=== PATIENT | male | born 1945 | race Asian ===

== ENCOUNTER 2016-11-06 11:07 | Outpatient (CLI) | payer MEDICARE | END 2016-11-06 11:08 | DX: Z00.00 Encounter for general adult medical examination without abnormal findings (principal); I10 Essential (primary) hypertension; E78.5 Hyperlipidemia, unspecified; N40.0 Benign prostatic hyperplasia without lower urinary tract symptoms ==

== ENCOUNTER 2016-12-14 10:20 | Outpatient (CLI) | payer MEDICARE ==
--- NOTE | 2016-12-15 06:44 | Ultrasound Report ---
CAROTID DUPLEX: 12/14/2016 CLINICAL INDICATION: Right carotid bruit. TECHNIQUE: Real-time sonographic vascular imaging was performed by the combination worker through the carotid arteries utilizing both color-flow and Doppler spectral analysis. Multiple farm loan representative static images were saved for review. Vessel PSV cm/sec 2D Plaque Estimate % ICA/CCA PSV EDV cm/sec % Stenosis RCCA Prox 118 -- RCCA Dist 96 28 RECA 86 -- RT BULB 42 -- 0.44 11 DOROTHEA Prox 68 -- 0.71 20 DOROTHEA Mid 57 -- 0.59 23 DOROTHEA Dist 47 -- 0.49 18 RVA 56 RVA flow direction: Antegrade. Vessel PSV cm/sec 2D Plaque Estimate % ICA/CCA PSV EDV cm/sec % Stenosis LCCA Prox 132 -- LCCA Dist 76 21 LECA 75 -- LFT BULB 49 -- 0.64 10 LICA Prox 54 -- 0.71 23 LICA Mid 80 -- 1.05 32 LICA Dist 57 -- 0.75 26 LVA 39 LVA flow direction: Antegrade. Velocity criteria are extrapolated from diameter data as defined by the Society of Radiologists in Ultrasound Consensus Conference Radiology 2003; 229; 340-346. Degree of Stenosis % ICA PSV cm/sec Plaque Estimate % ICA/CCA RSV Ratio ICA EDV cm/sec Normal < 125 None < 2.0 < 40 <50 < 125 < 50 < 2.0 < 40 50-69 125 - 130 >/= 50 2.0 - 4.0 40 - 100 >/= 70 but less than near occlusion > 230 >/= 50 > 4.0 > 100 Near occlusion High, low, or undetectable Visible lumen Variable Variable Total occlusion Undetectable No detectable lumen Not applicable Not applicable FINDINGS: RIGHT: There is minimal plaquing in the right carotid bifurcation, without evidence of a focal hemodynamically significant carotid stenosis. LEFT: There is minimal plaquing in the left carotid bifurcation, without evidence of a focal hemodynamically significant carotid stenosis. The vertebral arteries demonstrate antegrade flow bilaterally. IMPRESSION: MINIMAL PLAQUING BILATERALLY, WITHOUT EVIDENCE OF A FOCAL HEMODYNAMICALLY SIGNIFICANT CAROTID STENOSIS. MTDD
== END 2016-12-14 10:21 | disposition home or self-care (01) ==
LOC: DI 10:20
PROVIDERS: ATTEND Nurse Practitioner Family
DX: R01.1 Cardiac murmur, unspecified (principal); I51.7 Cardiomegaly
CPT/HCPCS: 93306; 93880

== ENCOUNTER 2017-01-22 10:05 | Outpatient (CLI) | payer MEDICARE ==
[2017-01-22 18:57] LABS: BILIRUBIN,DIRECT 0.1 mg/dL (0.1-0.5); BILIRUBIN,TOTAL 0.6 mg/dL (0.2-1.0); CHOL/HDL RATIO 3.3 (<5.0); CHOLESTEROL 149 mg/dL; HDL CHOLESTEROL 45 mg/dL; LDL/HDL RATIO 1.9 (<3.6); TOTAL PROTEIN 7.2 g/dL (6.7-8.2); TRIGLYCERIDES 96 mg/dL; VLDL CHOLESTEROL 19 mg/dL
== END 2017-01-22 10:06 | disposition home or self-care (01) ==
LOC: LAB.S 10:05
PROVIDERS: ATTEND Nurse Practitioner Family
DX: E78.5 Hyperlipidemia, unspecified (principal)
CPT/HCPCS: 36415; 80061; 80076

== ENCOUNTER 2017-12-17 09:27 | Outpatient (CLI) | payer MEDICARE ==
[2017-12-17 18:02] LABS: BASOPHILS # (AUTO) 0.1 10^3/uL (0.0-0.1); BASOPHILS % (AUTO) 1.3 %; EOSINOPHILS # (AUTO) 0.3 10^3/uL (0.0-0.7); EOSINOPHILS % (AUTO) 6.5 %; HGB - HEMOGLOBIN 14.9 g/dL (14.0-18.0); LYMPHOCYTES # (AUTO) 1.6 10^3/uL (1.5-3.5); MEAN CORPUSCULAR HEMOGLOBIN 31.4 pg (27.0-31.0); MEAN CORPUSCULAR HGB CONC 32.9 g/dL (32.0-36.0); MEAN CORPUSCULAR VOLUME 95.7 fL (80.0-94.0); MONOCYTES # (AUTO) 0.5 10^3/uL (0.0-1.0); MONOCYTES % (AUTO) 9.7 %; NEUTROPHILS # (AUTO) 2.8 10^3/uL (1.5-6.6); NEUTROPHILS % (AUTO) 52.5 %; PLT - PLATELET COUNT 258 10^3/uL (130-450); RED BLOOD COUNT 4.74 10^6/uL (4.70-6.10); RED CELL DISTRIBUTION WIDTH 13.2 % (12.0-15.0); WHITE BLOOD COUNT 5.3 x10^3/uL (4.8-10.8)
[2017-12-17 18:28] LABS: ALBUMIN 4.4 g/dL (3.2-5.5); ALBUMIN/GLOBULIN RATIO 1.6 (1.0-2.2); ALKALINE PHOSPHATASE 40 IU/L (42-121); ALT ALANINE AMINOTRANSFERASE 28 IU/L (10-60); AST ASPARTATE AMINOTRANSFERASE 25 IU/L (10-42); BILIRUBIN,TOTAL 0.9 mg/dL (0.2-1.0); BUN - BLOOD UREA NITROGEN 26 mg/dL (6-20); CALCIUM 9.5 mg/dL (8.5-10.3); CARBON DIOXIDE - CO2 28 mmol/L (21-32); CHLORIDE 104 mmol/L (101-111); CHOL/HDL RATIO 3.4 (<5.0); CHOLESTEROL 134 mg/dL; CREATININE 1.1 mg/dL (0.6-1.2); GFR - MDRD 66 (>89); GLUCOSE 102 mg/dL (70-100); HDL CHOLESTEROL 39 mg/dL; LDL CHOLESTEROL,CALCULATED 74 mg/dL; LDL/HDL RATIO 1.9 (<3.6); SODIUM 140 mmol/L (135-145); TOTAL PROTEIN 7.1 g/dL (6.7-8.2); VLDL CHOLESTEROL 21 mg/dL
== END 2017-12-17 09:28 ==
LOC: LAB.S 09:27
PROVIDERS: ATTEND Nurse Practitioner Family
DX: I10 Essential (primary) hypertension (principal); E78.5 Hyperlipidemia, unspecified; Z12.5 Encounter for screening for malignant neoplasm of prostate
CPT/HCPCS: 36415; 80053; 80061; 84443; 85025; G0103; 83721; 84153

== ENCOUNTER 2018-11-28 20:16 | Emergency (ER) | payer MEDICARE ==
[2018-11-28 20:28] VITALS: BP 150/83
--- NOTE | 2018-11-28 20:48 | ED Physician Documentation ---
History of Present Illness - Stated complaint Stated Complaint: ARM SWELLING/BITE - Chief complaint Chief Complaint: Ext Problem - History obtained from History obtained from: Patient - Additonal information Additional information: Patient is a previously healthy 73-year-old, right-handed male presenting with swelling, redness, warmth and tenderness to his left hand after being stung by bee yesterday. Patient reports that since that time his left hand and forearm have become more swollen, tender, red and warm. Patient was seen by physician earlier today and started on prednisone which he has taken and noted improvement of the redness already. 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 Patient also denies fever. Patient has not yet tried ibuprofen, Tylenol, or elevation. No other improving or worsening factors noted. Review of Systems Constitutional: denies: Fever Skin: reports: Bite / sting PD PAST MEDICAL HISTORY - Past Medical History Cardiovascular: Hypertension GI: Cholelithiasis : Benign prostate hypertrophy - Past Surgical History Past Surgical History: Yes General: Appendectomy - Present Medications Home Medications: Ambulatory Orders Medication Instructions Recorded Confirmed RX: Aspirin [Stew Chewable 81 mg 10/20/15 Aspirin] RX: Lisinopril 20 mg 10/20/15 Tamsulosin [Flomax] 0.4 mg 10/20/15 Prednisone [Amanda] 1 mg PO 11/28/18 RX: amLODIPine [Norvasc] 5 mg ORAL DAILY 11/28/18 11/28/18 - Allergies Allergies/Adverse Reactions: Allergies Allergy/AdvReac Type Severity Reaction Status Date / Time pravastatin Allergy Unknown Verified 11/28/18 20:29 - Social History Does the pt smoke?: No Smoking Status: Never smoker Does the pt drink ETOH?: No Does the pt have substance abuse?: No - Immunizations Immunizations are current?: No PD ED PE NORMAL - Vitals Vital signs reviewed: Yes - General General: Alert and oriented X 3, No acute distress, Well developed/nourished - HEENT HEENT: Atraumatic - Cardiac Cardiac: Strong equal pulses (Cap refill brisk) - Respiratory Respiratory: No respiratory distress - Derm Derm: Other (Appreciable swelling, erythema, and warmth to the touch of left hand diffusely that continues into the left forearm. 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 Patient was seen by a physician earlier today and started on steroids and symptoms have already improved. Also considered cellulitis, but feel that symptoms are more allergic in nature. At this time, do not feel patient requires antibiotics, but advised on strict return precautions and close follow-up. Area marked appropriately to provide more objective view if symptoms are worsening or not. Also discussed other supportive cares including elevation, ice application, and anti-inflammatories. Otherwise, have low suspicion for other complications including fracture, dislocation, but considered. Do not feel patient requires further interventions at this time. Patient voiced understanding and is comfortable with discharge plan. Departure - Departure Disposition: 01 Home, Self Care Clinical Impression: Allergic reaction Condition: Good Instructions: ED Bite Sting Insect Local Allergic React Follow-Up: Radha Moreno ARNP [Primary Care Provider] - Comments: Please continue all medications at home including steroids. Also recommend regular use of ibuprofen or Tylenol throughout the day to help reduce inflammation. May also place ice and use elevation to help reduce swelling. Please follow-up with your primary care physician in the next 1 to 2 days. Return to ED immediately if experience worsening swelling, redness, pain, fever, or other concerns. Discharge Date/Time: 11/28/18 21:14
== END 2018-11-28 21:14 | disposition home or self-care (01) ==
LOC: ED 20:16
DX: T63.441A Toxic effect of venom of bees, accidental (unintentional), initial encounter (principal); X58.XXXA Exposure to other specified factors, initial encounter; M79.89 Other specified soft tissue disorders; I10 Essential (primary) hypertension
CPT/HCPCS: 99282; 99283

== ENCOUNTER 2019-01-06 09:17 | Outpatient (CLI) | payer MEDICARE ==
[2019-01-06 17:19] LABS: BASOPHILS # (AUTO) 0.1 10^3/uL (0.0-0.1); BASOPHILS % (AUTO) 1.2 %; EOSINOPHILS # (AUTO) 0.3 10^3/uL (0.0-0.7); EOSINOPHILS % (AUTO) 5.3 %; LYMPHOCYTES # (AUTO) 1.5 10^3/uL (1.5-3.5); LYMPHOCYTES % (AUTO) 31.2 %; MEAN CORPUSCULAR HEMOGLOBIN 30.4 pg (27.0-31.0); MEAN CORPUSCULAR HGB CONC 31.7 g/dL (32.0-36.0); MEAN CORPUSCULAR VOLUME 95.7 fL (80.0-94.0); MEAN PLATELET VOLUME 10.4 fL (7.4-11.4); MONOCYTES # (AUTO) 0.6 10^3/uL (0.0-1.0); MONOCYTES % (AUTO) 11.4 %; NEUTROPHILS # (AUTO) 2.5 10^3/uL (1.5-6.6); NEUTROPHILS % (AUTO) 50.7 %; PLT - PLATELET COUNT 252 10^3/uL (130-450); RED BLOOD COUNT 4.94 10^6/uL (4.70-6.10); RED CELL DISTRIBUTION WIDTH 12.5 % (12.0-15.0); WHITE BLOOD COUNT 4.9 x10^3/uL (4.8-10.8)
[2019-01-06 17:54] LABS: ALBUMIN 4.5 g/dL (3.2-5.5); ALBUMIN/GLOBULIN RATIO 1.6 (1.0-2.2); ALKALINE PHOSPHATASE 39 IU/L (42-121); ALT ALANINE AMINOTRANSFERASE 27 IU/L (10-60); AST ASPARTATE AMINOTRANSFERASE 21 IU/L (10-42); BILIRUBIN,TOTAL 0.8 mg/dL (0.2-1.0); BUN - BLOOD UREA NITROGEN 21 mg/dL (6-20); CALCIUM 9.6 mg/dL (8.5-10.3); CARBON DIOXIDE - CO2 28 mmol/L (21-32); CHLORIDE 102 mmol/L (101-111); CHOL/HDL RATIO 3.8 (<5.0); CHOLESTEROL 161 mg/dL; CREATININE 1.1 mg/dL (0.6-1.2); GFR - MDRD 66 (>89); GLUCOSE 110 mg/dL (70-100); HDL CHOLESTEROL 42 mg/dL; LDL CHOLESTEROL,CALCULATED 99 mg/dL; LDL/HDL RATIO 2.4 (<3.6); SODIUM 141 mmol/L (135-145); TOTAL PROTEIN 7.3 g/dL (6.7-8.2); VLDL CHOLESTEROL 20 mg/dL
[2019-01-06 18:18] LABS: HB2 TOTAL 16.4 g/dL; HEMOGLOBIN A1C 0.75 g/dL; HEMOGLOBIN A1C % 6.3 % (4.6-6.2)
== END 2019-01-06 09:18 | disposition home or self-care (01) ==
LOC: LAB.S 09:17
PROVIDERS: ATTEND Registered Nurse
DX: E78.5 Hyperlipidemia, unspecified (principal); R09.89 Other specified symptoms and signs involving the circulatory and respiratory systems; I10 Essential (primary) hypertension; N40.0 Benign prostatic hyperplasia without lower urinary tract symptoms
CPT/HCPCS: 36415; 80061; 83036; G0103; 80053; 83721; 84153; 84443; 85025

== ENCOUNTER 2022-12-28 07:05 | Outpatient (CLI) | payer MEDICARE ==
[2022-12-28] MEDS ORDERED: LIDOCAINE-MPF 1% 5 ML VIAL ONE (07:28)
[2022-12-28] MEDS ORDERED: fentaNYL 100 MCG/2 ML VIAL ONE (07:47)
[2022-12-28] MEDS ORDERED: MIDAZOLAM 2 MG/2 ML VIAL ONE (07:47)
[2022-12-28] MEDS ORDERED: fentaNYL 100 MCG/2 ML VIAL IVP STA (08:40)
[2022-12-28] MEDS ORDERED: MIDAZOLAM 2 MG/2 ML VIAL IVP ONE (08:40)
[2022-12-28] MEDS ORDERED: LACTATED RINGERS 1,000 ML IV ONE ×2 (09:26→09:51)
--- NOTE | 2022-12-28 09:36 | CT Report ---
PROCEDURE: LT LUNG BX PERC Sedation analgesia for 15 minutes. INDICATIONS: LUNG CA TECHNIQUE: The indications, alternatives, benefits, risks, and possible complications of the procedure were comm unicated to the patient. Informed written consent from the patient was obtained and placed in the art. Continuous EKG and hemodynamic monitoring was started by trained personnel. For radiation dose reduction, the following was used: automated exposure control, adjustment of mA and/or kV according to patient size. The patient was brought to the CT suite and deputy insurance commissioner spiral CT imaging was performed with localization g rid. The appropriate site for percutaneous access to the biopsy target was marked, was prepped and d raped sterilely, and was infused with local anaesthesia. Under CT guidance, a core biopsy trocar and needle set was advanced to the biopsy target, and specimen(s) were obtained. The trocar and needle were then removed, and the patient was sent for post-procedure monitoring. COMPARISON: CT chest 12/15/2022 FINDINGS: Biopsy site: Left lung base Needle: 18 gauge biopsy needle with introducer trocar. Number of passes: 5 Medications: 1% lidocaine for local anaesthesia. IV Fentanyl and Versed for conscious sedation for 15 minutes (see nursing record). Complications: Left pneumothorax. IMPRESSION: Successful CT-guided biopsy of the left basilar lung mass. Reviewed by: Nelson Donovan MD on 12/28/2022 9:35 AM PDT Approved by: Nelson Donovan MD on 12/28/2022 9:35 AM PDT Station ID: [id number]
[2022-12-28 09:49] VITALS: BP 130/72
--- NOTE | 2022-12-28 10:12 | XRAY Report ---
PROCEDURE: Chest radiograph 1 view INDICATIONS: 30min Post Lung Biopsy Chest XR TECHNIQUE: One view of the chest was acquired. COMPARISON: Images from CT lung biopsy same day, CT chest 12/15/2022 FINDINGS: Surgical changes and devices: None. Lungs and pleura: Small left apical pneumothorax. Known left basilar lung mass better seen on prior CT. No pleural effusion. Mediastinum: Cardiac silhouette is at the upper limits of normal in size. Bones and chest wall: No suspicious bony lesions. Overlying soft tissues appear unremarkable. IMPRESSION: Small left apical pneumothorax. Discussed with Dr. Almeida at approximately 1005 hours 12/28/2022 Reviewed by: Nelson Donovan MD on 12/28/2022 10:10 AM PDT Approved by: Nelson Donovan MD on 12/28/2022 10:10 AM PDT Station ID: [id number]
== END 2022-12-28 07:06 | disposition home or self-care (01) ==
LOC: DI 07:05
PROVIDERS: ATTEND Internal Medicine Hematology & Oncology
DX: D02.22 Carcinoma in situ of left bronchus and lung (principal); J95.811 Postprocedural pneumothorax
CPT/HCPCS: 32408

== ENCOUNTER 2022-12-28 10:17 | Emergency (ER) | payer MEDICARE ==
--- NOTE | 2022-12-28 10:24 | ED Physician Documentation ---
PD HPI CHEST PAIN - Stated complaint Stated Complaint: POST SURGICAL - History obtained from History obtained from: Patient - History of Present Illness Timing - onset: How many hours ago (1), Today Timing - onset during: Other (The patient has a recently diagnosed left midlung mass that was biopsied in interventional radiology at our facility about an hour ago. Postprocedure chest x-ray showed a small pneumothorax. Patient referred to the ER for observation/further evaluation.) Timing - details: Abrupt onset, Still present Quality: Aching (The patient complains of some aching pain at the site of the biopsy needle introduction site. He denies any shoulder pain. He denies feeling of dyspnea. He is comfortable at this time.) Location: Left chest Associated symptoms: No: Shortness of air, Nausea, Feeling faint / dizzy, Palpitations Similar symptoms before: Has not had sx before Recently seen: Other (seen in Radiology with percutaneous biopsy done this morning about 1 hour ago.) Review of Systems Constitutional: denies: Fever, Chills Cardiac: denies: Palpitations Neurologic: denies: Generalized weakness, Near syncope PD PAST MEDICAL HISTORY - Past Medical History Cardiovascular: Hypertension, High cholesterol, Murmur Respiratory: Other Endocrine/Autoimmune: Type 2 diabetes GI: GERD : Benign prostate hypertrophy HEENT: None Derm: None - Past Surgical History Past Surgical History: Yes General: Appendectomy - Present Medications Home Medications: Ambulatory Orders Medication Instructions Recorded Confirmed Aspirin [Stew Chewable Aspirin] 81 mg 10/20/15 Lisinopril 20 mg 10/20/15 Tamsulosin [Flomax] 0.4 mg 10/20/15 Prednisone [Amanda] 1 mg PO 11/28/18 amLODIPine [Norvasc] 5 mg ORAL DAILY 11/28/18 11/28/18 - Allergies Allergies/Adverse Reactions: Allergies Allergy/AdvReac Type Severity Reaction Status Date / Time pravastatin Allergy Unknown Verified 11/28/18 20:29 - Social History Does the pt smoke?: No Smoking Status: Never smoker Does the pt drink ETOH?: No Does the pt have substance abuse?: No - Immunizations Immunizations are current?: No PD ED PE NORMAL - Vitals Vital signs reviewed: Yes - General General: Alert and oriented X 3, No acute distress, Well developed/nourished - Neck Neck: Supple, no meningeal sign, No adenopathy - Cardiac Cardiac: RRR, No murmur - Respiratory Respiratory: No respiratory distress, Clear bilaterally - Abdomen Abdomen: Soft, Non tender - Derm Derm: Normal color, Warm and dry - Neuro Neuro: Alert and oriented X 3, No motor deficit, Normal speech Results - Vitals Vitals: Vital Signs - 24 hr 12/28/22 12/28/22 12/28/22 10:28 10:37 12:34 Temperature 36.6 C Heart Rate 63 64 Respiratory 18 18 19 Rate Blood Pressure 143/72 H 137/78 H O2 Saturation 95 100 97 If not protocol 2 2 : Oxygen Flow, liters/minute 12/28/22 12/28/22 14:17 15:10 Temperature Heart Rate 61 66 Respiratory 19 21 Rate Blood Pressure 139/75 H 137/72 H O2 Saturation 97 97 If not protocol : Oxygen Flow, liters/minute Oxygen O2 Source Nasal cannula Oxygen Flow Rate 2 - Rads (name of study) chest xray Relevant Findings:: Prelim report reviewed, EMP independent interpretation of test (There is a left lung field mass similar to prior. There is a small pneumothorax in the left apex similar in appearance to the one from earlier this morning.), See rad report chest Relevant Findings:: Prelim report reviewed (minimal increase in PTX 1 cm vs 1.2 cm. ), EMP independent interpretation of test (I think the PTX is essentially unchanged , visible just over the line of 3rd rib. Main point is that it is not significantly increased. ) PD Medical Decision Making - ED course Complexity details: reviewed results, re-evaluated patient (the patient was not having any dyspnea nor general chest pain. He was comfortable the several hours in ER. Rpeat CXR at 4 hours interval showing essentially unchanged PTX. At this point, seems stable without ongoing airleak. I feel he is stable for discharge. Would like to get repeat CXR tomorrow. ), considered differential (The patient with a post procedure pneumothorax status post lung biopsy in radiology. Brought over to the ER for further evaluation. I did a short interval chest repeat chest x-ray which did not show any progression of the pneumothorax. We will watch him for a few hours and repeat that.), d/w patient Departure - Departure Disposition: 01 Home, Self Care Clinical Impression: Mass of left lung, Pneumothorax after biopsy Condition: Stable Record reviewed to determine appropriate education?: Yes Instructions: ED Pneumothorax Blunt Trauma Follow-Up: VASILIY BELL MD [Primary Care Provider] - Comments: At this point your repeat x-ray appears improved compared to the one from several hours ago. There does not appear to be any ongoing air leak from the biopsy site. It would seem safe to head home at this point. Return to the ER if you have increased shortness of breath, chest pain, lightheadedness or any other concerning symptoms. I would suggest returning for 1 more repeat x-ray tomorrow just to ensure there is no delayed leak. The most easy way for that is probably to return to the ER given that your primary care is across on the [facility] etc. No vigorous activity or heavy lifting or such today and tomorrow. No flying in airplanes because of pressure changes for typically suggested a month. Continue usual medications. Discharge Date/Time: 12/28/22 15:12
--- OUTSIDE RECORDS SUMMARY | 2022-12-28 10:44 | EXTERNAL MEDICAL SUMMARY RPT | Continuity of Care Document ---
Author Name Unknown Address [address] [place] [address] Phone Organization [facility] Address [address] [place] [address] Phone Problems date description facility 2022-12-22 08:12 Malignant neoplasm o f lower lobe, left bronch or [facility] 2022-12-22 08:23 Malignant neoplasm o f lower lobe, [facility] bronch or [facility] 2022-12-25 10:47 Malignant neoplasm o f lower lobe, [facility] or [facility] 2022-12-25 10:51 Malignant neoplasm o f [facility], [facility] or [facility] Results/Labs test date author facility value unit interpretation Result panel 1 (unknown) (no date) (unknown) (unknown) (no value) (units unknown) (unknown) (unknown) (no date) (unknown) (unknown) 12/22/22 (units unknown) (unknown) (unknown) (no date) (unknown) (unknown) [address] [place] [address] (un its unknown) (unknown) (unknown) (no date) (unknown) (unknown) Accession Numb er: [id number] (units unknown) (unknown) (unknown) (no date) (unknown) (unknown) Age/Sex: 77 / M Date of Service: (units unknown) (unknown) (unknown) (no date) (unknown) (unknown) [place] [address] (units unknown) (unknown) (unknown) (no date) (unknown) (unknown) Approved by: Brittany Kirk M.D. on 12/22/2022 at 12:48 (units unknown) (unknown) (unknown) (no date) (unknown) (unknown) COMPARISON: None. (u nits unknown) (unknown) (unknown) (no date) (unknown) (unknown) : Acct:[id number] (units unknown) (unknown) (unknown) (no date) (unknown) (unknown) Delayed whole- body scintigrams were obtained approximately 3-4 hours after (units unknown) (unknown) (unknown) (no date) (unknown) (unknown) Dictated by: Brittany Kirk M.D. on 12/22/2022 at 12:34 (units unknown) (unknown) (unknown) (no date) (unknown) (unknown) FINDINGS: Ther e are innumerable foci of abnormal activity involving the (units unknown) (unknown) (unknown) (no date) (unknown) (unknown) IMPRESSION: Extensive osseous metastatic disease. (units unknown) (unknown) (unknown) (no date) (unknown) (unknown) INDICATIONS: L [facility] (units unknown) (unknown) (unknown) (no date) (unknown) (unknown) [facility] (uni ts unknown) (unknown) (unknown) (no date) (unknown) (unknown) Loc: [facility] (units unknown) (unknown) (unknown) (no date) (unknown) (unknown) [facility] ne Report (units unknown) (unknown) (unknown) (no date) (unknown) (unknown) Ordering Provi nick: Jose R Moyer MD (units unknown) (unknown) (unknown) (no date) (unknown) (unknown) PROCEDURE: NM BONE SCAN WHOLE BODY (units unknown) (unknown) (unknown) (no date) (unknown) (unknown) Patient: Stiven Marquez MR#: [id number] (units unknown) (unknown) (unknown) (no date) (unknown) (unknown) Procedure: NM bone scan whole body (units unknown) (unknown) (unknown) (no date) (unknown) (unknown) RADIOPHARMACEU TICAL : 21.3 mCi Tc-99m MDP IV. (units unknown) (unknown) (unknown) (no date) (unknown) (unknown) Signed (units unknown) (unknown) (unknown) (no date) (unknown) (unknown) TECHNIQUE: (units unknown) (unknown) (unknown) (no date) (unknown) (unknown) bilaterally, b markell pelvis, proximal right humerus and femurs bilaterally, (units unknown) (unknown) (unknown) (no date) (unknown) (unknown) cervical, (units unknown) (unknown) (unknown) (no date) (unknown) (unknown) consistent with (uni ts unknown) (unknown) (unknown) (no date) (unknown) (unknown) extensive osse ous metastatic disease. Increased activity in the right maxilla (units unknown) (unknown) (unknown) (no date) (unknown) (unknown) feet. (units unknown) (unknown) (unknown) (no date) (unknown) (unknown) injection of radiotracer. Anterior and posterior views were acquired from (units unknown) (unknown) (unknown) (no date) (unknown) (unknown) intravenous (units unknown) (unknown) (unknown) (no date) (unknown) (unknown) is (units unknown) (unknown) (unknown) (no date) (unknown) (unknown) nonspecific. (units unknown) (unknown) (unknown) (no date) (unknown) (unknown) thoracic and l umbar spine, sacrum, sternum, scapulae bilaterally, multiple ribs (units unknown) (unknown) (unknown) (no date) (unknown) (unknown) vertex to (units unknown) (unknown)
--- NOTE | 2022-12-28 11:05 | XRAY Report ---
PROCEDURE: Chest 1 View X-Ray INDICATIONS: post procedure PTX, eval TECHNIQUE: One view of the chest was acquired. COMPARISON: None. FINDINGS: Surgical changes and devices: None. Lungs and pleura: Tiny left apical pneumothorax is seen measures up to 1 cm in craniocaudal dimensio n. Ill-defined opacity in left mid to lower lung field is seen. No pleural effusion. Right lung is cl ear. Mediastinum: Mediastinal contours appear normal. Heart size is enlarged. Bones and chest wall: No suspicious bony lesions. Overlying soft tissues appear unremarkable. IMPRESSION: Small left apical pneumothorax as above. Masslike consolidation in left mid to lower lung field. Right lung is clear. Reviewed by: Frank Cheney MD on 12/28/2022 11:04 AM PDT Approved by: Frank Cheney MD on 12/28/2022 11:04 AM PDT Station ID: [id number]
--- NOTE | 2022-12-28 14:53 | XRAY Report ---
PROCEDURE: Chest 1 View X-Ray INDICATIONS: repeat eval following PTX. TECHNIQUE: One view of the chest was acquired. COMPARISON: Earlier study from the same day. FINDINGS: Surgical changes and devices: None. Lungs and pleura: Small left apical pneumothorax is again seen measures 1.2 cm in craniocaudad dimen saud on the current study compared to 1 cm on the earlier study. No right-sided pneumothorax. Mediastinum: Aortic arch calcification is seen.. Heart size is enlarged. Bones and chest wall: No suspicious bony lesions. Overlying soft tissues appear unremarkable. IMPRESSION: Interval minimal increase in the size of left apical pneumothorax as above. Reviewed by: Frank Cheney MD on 12/28/2022 2:52 PM PDT Approved by: Frank Cheney MD on 12/28/2022 2:52 PM PDT Station ID: [id number]
[2022-12-28 15:13] VITALS: BP 137/72
== END 2022-12-28 15:12 | disposition home or self-care (01) ==
LOC: ED 10:17
DX: J95.811 Postprocedural pneumothorax (principal); R91.8 Other nonspecific abnormal finding of lung field
CPT/HCPCS: 99284; 99285

== ENCOUNTER 2022-12-29 14:36 | Emergency (ER) | payer MEDICARE ==
--- NOTE | 2022-12-29 15:14 | XRAY Report ---
PROCEDURE: Chest 2 View X-Ray INDICATIONS: follow up/recheck for PTX yesterday TECHNIQUE: 2 views of the chest were acquired. COMPARISON: CT biopsy of the lung dated 12/28/2022, follow up chest x-ray dated 12/28/2022 FINDINGS: Surgical changes and devices: None. Lungs and pleura: No pleural effusions or pneumothorax. Left lower lobe lung mass is much more easy to see on the CT. Minimal residual left apical pneumothorax. Mediastinum: Mediastinal contours appear normal. Heart size is normal. Bones and chest wall: No suspicious bony lesions. Overlying soft tissues appear unremarkable. IMPRESSION: Minimal residual left apical pneumothorax. Reviewed by: Leo Gaxiola MD on 12/29/2022 3:12 PM PDT Approved by: Leo Gaxiola MD on 12/29/2022 3:12 PM PDT Station ID: [id number]
[2022-12-29 15:17] VITALS: BP 140/70
--- NOTE | 2022-12-29 15:20 | ED Physician Documentation ---
History of Present Illness - Stated complaint Stated Complaint: SENT BY PCP - Chief complaint Chief Complaint: General - History obtained from History obtained from: Patient - Additonal information Additional information: He had a lung biopsy yesterday with postprocedural pneumothorax and was advised to return today for repeat chest x-ray. He has no symptoms, no shortness of breath or chest pain. PD PAST MEDICAL HISTORY - Past Medical History Cardiovascular: Hypertension, High cholesterol, Murmur Respiratory: Other Endocrine/Autoimmune: Type 2 diabetes GI: GERD : Benign prostate hypertrophy HEENT: None Derm: None - Past Surgical History Past Surgical History: Yes General: Appendectomy - Present Medications Home Medications: Ambulatory Orders Medication Instructions Recorded Confirmed Aspirin [Stew Chewable Aspirin] 81 mg 10/20/15 Lisinopril 20 mg 10/20/15 Tamsulosin [Flomax] 0.4 mg 10/20/15 Prednisone [Amanda] 1 mg PO 11/28/18 amLODIPine [Norvasc] 5 mg ORAL DAILY 11/28/18 11/28/18 - Allergies Allergies/Adverse Reactions: Allergies Allergy/AdvReac Type Severity Reaction Status Date / Time pravastatin Allergy Unknown Verified 12/29/22 15:13 - Social History Does the pt smoke?: No Smoking Status: Never smoker Does the pt drink ETOH?: No Does the pt have substance abuse?: No - Immunizations Immunizations are current?: No PD ED PE NORMAL - Vitals Vital signs reviewed: Yes - General General: Alert and oriented X 3, No acute distress - Respiratory Respiratory: No respiratory distress, Clear bilaterally - Abdomen Abdomen: Non tender - Neuro Neuro: Alert and oriented X 3, Normal speech Results - Vitals Vitals: Vital Signs - 24 hr 12/29/22 15:13 Temperature 36.5 C Heart Rate 84 Respiratory 16 Rate Blood Pressure 140/70 H O2 Saturation 97 Oxygen O2 Source Room air - Rads (name of study) Chest x-ray shows improved pneumothorax Relevant Findings:: Final report received, EMP independent interpretation of test PD Medical Decision Making - ED course Complexity details: d/w patient (No flying and return precautions were discussed.) Departure - Departure Disposition: 01 Home, Self Care Clinical Impression: Pneumothorax after biopsy Condition: Good Record reviewed to determine appropriate education?: Yes Instructions: ED Pneumothorax Blunt Trauma Comments: Chest x-ray looking improved today. Still do not want you flying for at least 6 weeks and follow-up with your primary care physician. Return for new or worsening symptoms.
--- OUTSIDE RECORDS SUMMARY | 2022-12-29 15:25 | EXTERNAL MEDICAL SUMMARY RPT | Continuity of Care Document ---
Author Name Unknown Address [address] [place] [address] Phone Organization [facility] Address [address] [place] [address] Phone Problems date description facility 2022-12-22 08:12 Malignant neoplasm o f lower lobe, left bronch or [facility] 2022-12-22 08:23 Malignant neoplasm o f lower lobe, [facility] bronch or [facility] 2022-12-25 10:47 Malignant neoplasm o f lower lobe, [facility] or [facility] 2022-12-25 10:51 Malignant neoplasm o f [facility], [facility] or [facility] Results/Labs test date author facility value unit interpretation Result panel 1 (unknown) (no date) (unknown) (unknown) (no value) (units unknown) (unknown) (unknown) (no date) (unknown) (unknown) 12/22/22 (units unknown) (unknown) (unknown) (no date) (unknown) (unknown) [address] [place] [address] (un its unknown) (unknown) (unknown) (no date) (unknown) (unknown) Accession Numb er: [id number] (units unknown) (unknown) (unknown) (no date) (unknown) (unknown) Age/Sex: 77 / M Date of Service: (units unknown) (unknown) (unknown) (no date) (unknown) (unknown) [place] [address] (units unknown) (unknown) (unknown) (no date) (unknown) (unknown) Approved by: Brittany Kirk M.D. on 12/22/2022 at 12:48 (units unknown) (unknown) (unknown) (no date) (unknown) (unknown) COMPARISON: None. (u nits unknown) (unknown) (unknown) (no date) (unknown) (unknown) : Acct:[id number] (units unknown) (unknown) (unknown) (no date) (unknown) [...] unknown) (unknown) (unknown) (no date) (unknown) (unknown) [facility] (uni ts unknown) (unknown) (unknown) (no date) (unknown) (unknown) Loc: [facility] (units unknown) (unknown) (unknown) (no date) (unknown) (unknown) Nuclear Medici ne Report (units unknown) (unknown) (unknown) (no date) (unknown) (unknown) Ordering Provi nick: Jose R Moyer MD (units unknown) (unknown) (unknown) (no date) (unknown) (unknown) PROCEDURE: NM BONE SCAN WHOLE BODY (units unknown) (unknown) (unknown) (no date) (unknown) (unknown) Patient: Stiven Tyler MR#: [id number] (units unknown) (unknown) (unknown) (no date) (unknown) [...]
== END 2022-12-29 15:22 | disposition home or self-care (01) ==
LOC: ED 14:36
DX: J95.811 Postprocedural pneumothorax (principal); E11.9 Type 2 diabetes mellitus without complications
CPT/HCPCS: 99282; 99283

== ENCOUNTER 2023-01-15 16:17 | Outpatient (CLI) | payer MEDICARE ==
--- NOTE | 2023-01-15 16:51 | XRAY Report ---
PROCEDURE: Chest 2 View X-Ray INDICATIONS: COUGH,LUNG CA,FEVER TECHNIQUE: 2 views of the chest were acquired. COMPARISON: Chest x-ray 12/29/2022 FINDINGS: Surgical changes and devices: None. Lungs and pleura: Mild left and minimal right effusions, more prominent on the left when compared to prior exam. Mediastinum: Mediastinal contours appear normal. Heart size is normal. Bones and chest wall: No suspicious bony lesions. Overlying soft tissues appear unremarkable. IMPRESSION: Mild interval worsening of mild left effusion. Reviewed by: Nandini Tariq MD on 01/15/2023 4:50 PM PDT Approved by: Nandini Tariq MD on 01/15/2023 4:50 PM PDT Station ID: [id number]
== END 2023-01-15 16:18 | disposition home or self-care (01) ==
LOC: DI 16:17
PROVIDERS: ATTEND Physician Assistant
DX: C34.90 Malignant neoplasm of unspecified part of unspecified bronchus or lung (principal); R05.9 Cough, unspecified; R50.9 Fever, unspecified; J90 Pleural effusion, not elsewhere classified

== ENCOUNTER 2023-06-28 07:00 | Outpatient (CLI) | payer MEDICARE, OTHER ==
--- NOTE | 2023-06-28 16:22 | XRAY Report ---
PROCEDURE: Abdomen Acute INDICATIONS: ABDOMINAL PAIN TECHNIQUE: 2 views of the abdomen were acquired. COMPARISON: CT abdomen and pelvis dated 05/21/2023.. FINDINGS: Surgical changes and devices: None. Chest: Lungs are clear. Heart size is normal. No pleural effusions. No pneumoperitoneum. Bowel: No pneumoperitoneum. Large fecal load. Mildly prominent small bowel loops. Soft tissues: No masses; visualized solid organ contours appear normal in size. No suspicious abdom inal calcifications. Bones: Sclerotic bony metastatic disease. IMPRESSION: 1. No acute pulmonary process. 2. Sclerotic bony metastatic disease. 3. Constipation. Reviewed by: Leo Gaxiola MD on 06/28/2023 4:20 PM PST Approved by: Leo Gaxiola MD on 06/28/2023 4:20 PM PST Station ID: [id number]
== END 2023-06-28 23:59 | disposition home or self-care (01) ==
LOC: DI.S 07:00
PROVIDERS: ATTEND Registered Nurse
DX: C79.51 Secondary malignant neoplasm of bone (principal); K59.00 Constipation, unspecified
CPT/HCPCS: 36415; 80053; 80061; 83036; 83690; 83721; 84153; 84443; 85025; 86140

== ENCOUNTER 2023-06-29 11:16 | Outpatient (CLI) | payer MEDICARE ==
[2023-06-29 14:49] LABS: BASOPHILS # (AUTO) 0.1 10^3/uL (0.0-0.1); EOSINOPHILS # (AUTO) 0.2 10^3/uL (0.0-0.7); EOSINOPHILS % (AUTO) 3.6 %; HCT - HEMATOCRIT 45.4 % (42.0-52.0); HGB - HEMOGLOBIN 14.4 g/dL (14.0-18.0); LYMPHOCYTES # (AUTO) 1.4 10^3/uL (1.5-3.5); MEAN CORPUSCULAR HGB CONC 31.7 g/dL (32.0-36.0); MEAN CORPUSCULAR VOLUME 91.5 fL (80.0-94.0); MEAN PLATELET VOLUME 9.9 fL (7.4-11.4); MONOCYTES # (AUTO) 0.8 10^3/uL (0.0-1.0); MONOCYTES % (AUTO) 13.8 %; NEUTROPHILS # (AUTO) 3.4 10^3/uL (1.5-6.6); NEUTROPHILS % (AUTO) 57.4 %; PLT - PLATELET COUNT 216 10^3/uL (130-450); RED BLOOD COUNT 4.96 10^6/uL (4.70-6.10); RED CELL DISTRIBUTION WIDTH 13.5 % (12.0-15.0); WHITE BLOOD COUNT 5.9 x10^3/uL (4.8-10.8)
[2023-06-29 15:54] LABS: ALBUMIN 4.6 g/dL (3.2-5.5); ALBUMIN/GLOBULIN RATIO 1.4 (1.0-2.2); ALKALINE PHOSPHATASE 36 IU/L (42-121); ALT ALANINE AMINOTRANSFERASE 13 IU/L (10-60); AST ASPARTATE AMINOTRANSFERASE 19 IU/L (10-42); BILIRUBIN,TOTAL 0.5 mg/dL (0.2-1.0); BUN - BLOOD UREA NITROGEN 22 mg/dL (6-20); CALCIUM 9.5 mg/dL (8.5-10.3); CARBON DIOXIDE - CO2 29 mmol/L (21-32); CHLORIDE 100 mmol/L (101-111); CHOL/HDL RATIO 2.8 (<5.0); CHOLESTEROL 137 mg/dL; CREATININE 1.1 mg/dL (0.6-1.3); CRP - C-REACTIVE PROTEIN < 0.5 mg/dL (<0.5); GFR - MDRD 65 (>89); GLUCOSE 103 mg/dL (74-104); HDL CHOLESTEROL 49 mg/dL; LDL CHOLESTEROL,CALCULATED 51 mg/dL; LIPASE 39 U/L (11-82); POTASSIUM 4.2 mmol/L (3.5-4.5); SODIUM 134 mmol/L (135-145); TOTAL PROTEIN 7.8 g/dL (6.4-8.9); TRIGLYCERIDES 187 mg/dL (48-352); VLDL CHOLESTEROL 37 mg/dL
[2023-06-29 16:20] LABS: THYROID STIMULATING HORMONE 4.96 uIU/mL (0.34-5.60)
[2023-06-29 21:57] LABS: ESTIMATED AVERAGE GLUCOSE 128 mg/dL (70-100); HEMOGLOBIN A1c% 6.1 % (4.27-6.07)
== END 2023-06-29 11:17 | disposition home or self-care (01) ==
LOC: LAB.S 11:16
PROVIDERS: ATTEND Registered Nurse
DX: I10 Essential (primary) hypertension (principal); R10.9 Unspecified abdominal pain; R53.83 Other fatigue; E11.9 Type 2 diabetes mellitus without complications; C34.32 Malignant neoplasm of lower lobe, left bronchus or lung; C77.1 Secondary and unspecified malignant neoplasm of intrathoracic lymph nodes; E78.5 Hyperlipidemia, unspecified; N40.0 Benign prostatic hyperplasia without lower urinary tract symptoms
CPT/HCPCS: 36415; 80053; 80061; 83036; 83690; 83721; 84153; 84443; 85025; 86140

== ENCOUNTER 2023-11-05 08:00 | Outpatient (CLI) | payer MEDICARE | END 2023-11-05 23:59 | disposition home or self-care (01) | LOC: PC 08:00 | PROVIDERS: ATTEND Nurse Practitioner Adult Health | DX: Z51.5 Encounter for palliative care (principal); C34.32 Malignant neoplasm of lower lobe, left bronchus or lung; C78.7 Secondary malignant neoplasm of liver and intrahepatic bile duct; C79.51 Secondary malignant neoplasm of bone; L29.9 Pruritus, unspecified; R39.15 Urgency of urination; R25.2 Cramp and spasm | CPT/HCPCS: 99215 ==